=== PATIENT | male | born 1960 ===

== ENCOUNTER 2024-05-06 05:55 | Day surgery (SDC) | payer OTHER ==
[~2024-05-06 05:55] MED LIST: METFORMIN HCL1000 MG; NEUROTIN; TRADJENTA5 MG
[2024-05-06] MEDS ORDERED: GENTAMICIN SULFATE 40 MG/ML VIAL ONE (12:32)
[2024-05-06] MEDS ORDERED: CHLORHEXIDINE GLUCONATE 120 ML BOTTLE TOP ONE (12:33)
[2024-05-06] MEDS ORDERED: IOVERSOL 320 MG/ML - 50 ML VIAL IV ONE (12:34)
[2024-05-06] MEDS ORDERED: PHENAZOPYRIDINE HCL 100 MG TABLET PO ONE ×2 (14:45→18:17)
[2024-05-06] MEDS ORDERED: OxyCODONE HCL/APAP UD (PERCOCET) PO ONE (14:45)
[2024-05-06] MEDS ORDERED: TAMSULOSIN HCL 0.4 MG CAP PO ONE ×2 (14:45→18:17)
== END 2024-05-06 20:40 | disposition home or self-care (01) ==
LOC: CIR.AMB 05:55
PROVIDERS: ATTEND Urology
DX: N20.1 Calculus of ureter (principal); Q62.11 Congenital occlusion of ureteropelvic junction